=== PATIENT | male | born 1945 | race Caucasian/White ===

== ENCOUNTER 2016-12-30 11:46 | Emergency (ER) | payer OTHER ==
[2016-12-30 12:27] VITALS: BP 134/82; PULSE 81; RESP 16; TEMP 97.7; O2SAT 94
--- NOTE | 2016-12-30 12:54 | UCPHY ---
H & P Time Seen by Provider: 12/30/16 11:58 Patient Type: Established HPI/ROS: CHIEF COMPLAINT: Worried that he is having recurrent shingles to the right ear this time HISTORY OF PRESENT ILLNESS: [71-year-old male in prior good health. Noted yesterday some pain over the right pinna in particular in the canal. Does not notice any soft tissue swelling or lumps. There has been no discharge. He has had a really long year. This past summer he had left otalgia followed by shingles with residual balance problems. He is continuing to be under the care of an ear nose and throat doctor. He has not had complete resolution. Thus he is particularly worried about this occurring on the opposite ear, the right ear P not worse with movement Q ache R right pinna without radiation S mild T onset yesterday] REVIEW OF SYSTEMS: Constitutional - no fevers or chills. Eyes - no discharge, or injection ENT - change in hearing, difficulty swallowing, sore throat. Respiratory - No Shortness of breath, phlegm, wheezing or pleuritic chest pain. The cough is dry Musculoskeletal - no joint or muscle pain. Integument - no rashes. Neurological - no headache, numbness, tingling, or paresthesias. No focal motor weakness. Immunological - no swelling or lymphadenopathy. Smoking Status: Never smoked Physical Exam: Gen: Well developed, well nourished. Nontoxic. HEENT: Normocephalic. Ears: TMs are clear. Hearing normal. Been is normal without any erythema or lesions. The canal is minimal erythema on the right but no vesicles. There is paucity of wax. The TMs are translucent. Eyes: PERRL. No conjunctival injection or pallor. no jaundice. No nystagmus Nose: No nasal discharge. Sinuses are nontender. Throat: Membranes are moist. Oropharynx is without erythema or exudate. Normal phonation. Skin: Good color, without pallor. There is no diaphoresis. Skin is warm and dry , without diaphoresis. Intact without rashes Constitutional: Initial Vital Signs Temperature (C) 36.5 C 12/30/16 12:05 Heart Rate 81 12/30/16 12:05 Respiratory Rate 16 12/30/16 12:05 Blood Pressure 134/82 H 12/30/16 12:05 O2 Sat (%) 94 12/30/16 12:05 O2 Delivery Mode Room Air Allergies/Adverse Reactions: No Known Allergies Allergy (Verified 12/30/16 12:13) Home Medications: Medication Instructions Recorded Acyclovir 800 mg PO 5XD #35 tab 12/30/16 Albuterol Hfa Anes Only 12/30/16 Medical Decision Making ED Course/Re-evaluation: At this point in time icy no explanation his right ear pain. I certainly cannot guarantee him that this is not shingles on the opposite side but it is extraordinarily unlikely. Nonetheless he would like to go on acyclovir treatment thus he has been prescribed same. I do not feel the diagnosis is compelling enough to merit the risk of prednisone therapy, and he agrees. Evidently prednisone was particularly helpful this past summer however he did have quite the thrush related to this. I have advised and only moderate to the skin on the ear once daily so they can see any changes. She developed scarlett shingles that I would consider adding prednisone Differential Diagnosis: Diagnostic considerations include, but are not limited to, the following: URI, sinusitis, pharyngitis, otitis media, pneumonia, allergy, shingles. Departure - Departure Disposition: Home, Routine, Self-Care Clinical Impression: Otalgia of right ear Condition: Good Instructions: Earache (ED) Additional Instructions: Examine the ear once daily for the next week If you do start seeing small blister developed contact her family doctor Avoid any pressure on the ears such as from her ear plugs, ear muscle or having her hair trimmed Referrals: Mike Deluca MD [Primary Care Provider] - As per Instructions Prescriptions: Acyclovir 800 mg PO 5XD #35 tab - PQRS PQRS Measurement: 134: Depression screening and followup, PRIME RAMÍREZ-PHQ2 (12 years and older) Over the last 2 weeks, how often have you been bothered by any of the following problems? 1. Feeling down, depressed, or hopeless? 2. Little interest or pleasure in doing things? Patient answered yes to at least 1, referred to PCP for further evaluation. He explains that has been along the year and feels that his adjustment is improving related to the loss of activity he suffers related to the persistent vertigo from the left ear. 130: Documentation of medications. Reviewed all patient medications, doses, route and frequency. 226: Do you smoke? No. 47: 65 and older: Advanced care planning. Patient designates surrogate decision maker as spouse . Patient has advanced directive. 51: 18 years old and older with diagnosis of COPD, spirometry performance. Patient has no history of COPD 52: 18 years old and older with COPD and symptoms of COPD or FEV1<60% predicted prescribed a B Agonist. Patient has no history of COPD
== END 2016-12-30 13:07 | disposition home or self-care (01) ==
LOC: CED 11:46
DX: H92.01 Otalgia, right ear (principal); Z86.19 Personal history of other infectious and parasitic diseases
CPT/HCPCS: 99214-PO; G0463-PO

== ENCOUNTER 2017-09-27 08:24 | Emergency (ER) | payer OTHER ==
[2017-09-27] MEDS ORDERED: IPRATROPIUM/ALBUTEROL 3 ML DEYVIAL IH ONE (08:46)
[2017-09-27 08:48] VITALS: TEMP 99.1
--- NOTE | 2017-09-27 08:49 | EDPHY ---
H & P Time Seen by Provider: 09/27/17 08:40 HPI/ROS: CHIEF COMPLAINT: Cough HISTORY OF PRESENT ILLNESS: The patient is a 72-year-old relatively healthy man who comes to the emergency department complaining of persistent dry cough for the last 2 and half weeks. He states that he has had mild chest pressure associated with that. He does not have any history of cardiac disease. No recent travel. It does not worsen with exertion. No diaphoresis. No fevers. No GI symptoms. He states that he has had coughs like this before that have been persistent for over a month but usually following a flu-like illness which he did not have this time. He denies sinus congestion or sore throat or ear pain. No headache. No neck pain. He is concerned about bronchitis. He does have history of asthma type symptoms when he is around cats but no COPD or emphysema. He has not noticed any wheezing or stridor. He states that his symptoms are relatively constant. He also reports a history of GERD but states that this does not feel similar. REVIEW OF SYSTEMS: Constitutional: denies: chills, fever, recent illness, recent injury EENTM: denies: blurred vision, double vision, nose congestion Respiratory: denies: cough, shortness of breath Cardiac: See HPI denies: chest pain, irregular heart rate, lightheadedness, palpitations Gastrointestinal/Abdominal: denies: abdominal pain, diarrhea, nausea, vomiting, blood streaked stools Genitourinary: denies: dysuria, frequency, hematuria, pain Musculoskeletal: denies: joint pain, muscle pain Skin: denies: lesions, rash, jaundice, bruising Neurological: denies: headache, numbness, paresthesia, tingling, dizziness, weakness Hematologic/Lymphatic: denies: blood clots, easy bleeding, easy bruising Immunologic/allergic: denies: HIV/AIDS, transplant EXAM: GENERAL: Well-appearing, well-nourished and in no acute distress. HEAD: Atraumatic, normocephalic. EYES: Pupils equal round and reactive to light, extraocular movements intact, sclera anicteric, conjunctiva are normal. ENT: TMs normal, nares patent, oropharynx clear without exudates. Moist mucous membranes. NECK: Normal range of motion, supple without lymphadenopathy or JVD. LUNGS: Breath sounds clear to auscultation bilaterally and equal. No wheezes rales or rhonchi. HEART: Regular rate and rhythm without murmurs, rubs or gallops. ABDOMEN: Soft, nontender, normoactive bowel sounds. No guarding, no rebound. No masses appreciated. BACK: No CVA tenderness, no spinal tenderness, step-offs or deformities EXTREMITIES: Normal range of motion, no pitting or edema. No clubbing or cyanosis. NEUROLOGICAL: Cranial nerves II through XII grossly intact. Normal speech, normal gait. 5/5 strength, normal movement in all extremities, normal sensation PSYCH: Normal mood, normal affect. SKIN: Warm, dry, normal turgor, no visible rashes or lesions. Source: Patient Exam Limitations: No limitations - Personal History Tetanus Vaccine Date: 2010 - Medical/Surgical History Hx Asthma: Yes Hx Cardiac Disease: No Hx Renal Disease: No Hx Cirrhosis: No Hx Alcoholism: No Other PMH: seasonal asthma. Gerd. tonsillectomy, fx rt wrist as a child - Family History Significant Family History: No pertinent family hx - Social History Smoking Status: Never smoked Alcohol Use: Sober Drug Use: None Constitutional: Initial Vital Signs Temperature (C) 37.3 C 09/27/17 08:38 Heart Rate 94 09/27/17 08:38 Respiratory Rate 14 09/27/17 08:38 Blood Pressure 117/90 H 09/27/17 08:38 O2 Sat (%) 94 09/27/17 08:38 O2 Delivery Mode Room Air Allergies/Adverse Reactions: No Known Allergies Allergy (Verified 12/30/16 12:13) Home Medications: Medication Instructions Recorded Albuterol Hfa Anes Only 12/30/16 Albuterol [Proventil] 17 gm IH Q4-6PRN PRN #1 aerosol 09/27/17 Fluticasone Hfa 110 Mcg [Flovent 1 puffs IH BID #1 mdi 09/27/17 110 MCG Hfa MDI (*)] predniSONE 60 mg PO DAILY #9 tab 09/27/17 Medical Decision Making - Diagnostics EKG Interpretation: An EKG obtained and was read and documented in trace view. Please see trace view for full reading and report. Sinus rhythm, no acute ischemic changes, incomplete block Imaging Results: Imaging Impressions Chest X-Ray 09/27/17 08:46 Impression: No evidence for acute cardiopulmonary abnormality. Stable chronic findings, as above. Imaging: Discussed imaging studies w/ call center operations manager Radiologist ED Course/Re-evaluation: 9:50 a.m. the patient is doing well. He is doing much better after the DuoNeb. We discussed his x-ray results which are reassuring. I suspect that he has a viral bronchitis. I will treat him with steroids and albuterol inhaler. He is requesting a prescription for both and would prefer inhaled steroids. He is also requesting a prescription for prednisone in case the inhaled steroid still not work. He has a follow-up appoint with his Dr. Mike ramey on Friday which I advised him to keep. We discussed indications for returning to the emergency department sooner. Differential Diagnosis: Partial list of the Differential diagnosis considered include but were not limited to; bronchitis, pneumonia, upper respiratory tract infection, reactive airway disease and although unlikely based on the history and physical exam, I also considered acute coronary disease, PE, pneumothorax. I discussed these differential diagnoses and the plan with the patient as well as the usual and expected course. The patient understands that the diagnosis is provisional and that in medicine we are not always correct and that further workup is often warranted. Usual and customary warnings were given. All of the patient's questions were answered. The patient was instructed to return to the emergency department should the symptoms at all worsen or return, otherwise to followup with the physician as we discussed. - Data Points Medications Given: Discontinued Medications Albuterol/Ipratropium (Duoneb) 3 ml IH EDNOW ONE Stop: 09/27/17 08:47 Last Admin: 09/27/17 08:53 Dose: 3 ml Departure - Departure Disposition: Home, Routine, Self-Care Clinical Impression: Acute bronchitis Qualifiers: Bronchitis organism: unspecified organism Qualified Code(s): J20.9 - Acute bronchitis, unspecified Condition: Fair Instructions: Acute Bronchitis (ED) Referrals: Mike Ramey MD [Primary Care Provider] - As per Instructions Prescriptions: Albuterol [Proventil] 17 gm IH Q4-6PRN PRN #1 aerosol PRN Reason: Cough, Moderate Fluticasone Hfa 110 Mcg [Flovent 110 MCG Hfa MDI (*)] 1 puffs IH BID #1 mdi predniSONE 60 mg PO DAILY #9 tab
--- NOTE | 2017-09-27 09:14 | CPEKG ---
Heart Rate: 88 RR Interval: 682 P-R Interval: 148 QRSD Interval: 110 QT Interval: 380 QTC Interval: 460 P [place]: 58 QRS [place]: -46 T Wave [place]: 46 EKG Severity - ABNORMAL ECG - EKG Impression: SINUS RHYTHM EKG Impression: INCOMPLETE RBBB AND LAFB Electronically Signed By: John Lopez 27-Sep-2017 09:15:10
[2017-09-27 09:59] VITALS: BP 104/70; PULSE 87; RESP 16; O2SAT 98
== END 2017-09-27 09:58 | disposition home or self-care (01) ==
LOC: CED 08:24
DX: J20.9 Acute bronchitis, unspecified (principal); J45.909 Unspecified asthma, uncomplicated
CPT/HCPCS: 71020-PO